=== PATIENT | female | born 2000 | race Caucasian/White ===

== ENCOUNTER 2020-06-05 06:03 | Emergency (ER) | payer OTHER, SELFPAY ==
[2020-06-05 06:29] VITALS: BP 110/73; PULSE 79; RESP 18; TEMP 36.8; O2SAT 97; BMI 20.7
[2020-06-05 06:37] VITALS: BP 110/73; PULSE 77; RESP 18; TEMP 36.8; O2SAT 98
--- NOTE | 2020-06-05 06:59 | XR_ITS ---
EXAMINATION: XR ANKLE, RIGHT CLINICAL INFORMATION: Lateral malleolus pain. COMPARISON: None TECHNIQUE: AP, lateral, and mortise views of the right ankle. FINDINGS: The ankle joint and mortise are intact. There is no acute fracture or dislocation. The tibiotalar joint space is unremarkable. The malleoli are intact. The tarsal bones are normally aligned. The soft tissues are unremarkable. XR/XR ankle RT min 3V IMPRESSION: Unremarkable right ankle.
--- NOTE | 2020-06-05 07:00 | ED_ITS ---
HPI - General Adult General Chief complaint: Fall Stated complaint: PANIC ATTACK Time Seen by Provider: 06/05/20 06:55 Source: patient Mode of arrival: ambulatory History of Present Illness HPI narrative: patient comes to emergency room complaining of a fall, patient states she was walking down the stairs in her porch, missed couple of steps, sprained her right ankle. Patient states she was unable to bear weight on her right foot after a fall, patient's brother help her to come to the emergency room. Patient states she did not hit her head, no loss of consciousness, not on blood thinners complaint: sprain ankle Onset (ago): hour(s) Related Data Home Medications Medication Instructions Recorded Confirmed No Known Home Meds 06/05/20 06/05/20 Allergies Allergy/AdvReac Type Severity Reaction Status Date / Time No Known Allergies Allergy Verified 06/05/20 06:29 [No Known Allergies*] Review of Systems Review of Systems: Constitutional : No Weight loss, No Fever, No Chills, No N ight Sweats, No Fatigue, No Malaise ENT/Mouth : No Hearing loss, No Ear Pain, No Nasal Congestion, No Sinus Pain, No Hoarseness, No sore throat, No Rhinorrhea, No Swallowing Difficulty Eyes: No Eye Pain, No Swelling, No Redness, No Foreign Body, No Discharge, No Vision Changes Cardiovascular : No Chest Pain, No SOB, No Dyspnea on Exertion, No Orthopnea, No Edema, No Palpitations Respiratory : No Cough, No Sputum, No Wheezing, No Smoke Exposure, No Dyspnea Gastrointestinal : No Nausea, No Vomiting, No Diarrhea, No Constipation, No abdominal Pain, No Hematochezia, No Melena Genitourinary : no irregular bleeding, No Dysuria, No Urinary Frequency, No Hematuria, No Urinary Incontinence, No Urgency, No Flank Pain, No Urinary Flow Changes, No Hesitancy Musculoskeletal : right-sided ankle pain Skin : No Skin Lesions, No rash Neuro : No Weakness, No Numbness, No Paresthesias, No Loss of Consciousness, No Dizziness, No Headache Psych : No Anxiety/Panic, No Depression, No SI/HI/AH/VH, No Social Issues, Heme/Lymph: No Bruising, No Bleeding,No Lymphadenopathy Endocrine : No Polyuria, No Polydipsia, No Temperature Intolerance [facility] Past Medical History Medical History Ankle sprain Social History Social History Alcohol intake: current Alcohol intake frequency: holidays/special occasions only Alcohol type: wine Smoked in Last 30 Days: No Use of substances other than those prescribed or required for medical reasons: No Advance Directives: No Advance Directives Information Provided: No Physical Exam Vital Signs: Vital Signs: Vital Signs Temp Pulse Resp BP Pulse Ox 06/05/20 06:37 98.2 F 77 18 110/73 98 06/05/20 06:29 98.2 F 79 18 110/73 97 Body Mass Index 20.7 Appearance: Alert. Oriented X3. No acute distress. Eyes: Pupils equal, round and reactive to light. ENT: Pharynx normal. Neck: Normal inspection. Neck supple. No lymph nodes noted. No crepitus CVS: Normal heart rate and rhythm. Pulses normal. Normal S1 and S2 Respiratory: No respiratory distress. Breath sounds normal. No Wheezing. No rales Abdomen: Soft and nontender. No rigidity. No distention. good BS x4 Skin: Skin warm and dry. Normal skin color. Normal skin turgor. Extremities: No lower extremity edema. mild swelling in the lateral malleolus on the right ankle, tender to palpation over the malleolus, unable to bear weight, left ankle within normal limits Neuro: Oriented X 3. No motor deficit. No sensory deficit. Moving all extermities. No slurred speech. Course Course Course Narrative: I discussed the x-rays with the patient, no acute fracture. I offered crutches to the patient, she declined. Discharge Plan Discharge Clinical Impression: Sprain of ankle Qualifiers: Encounter type: initial encounter Involved ligament of ankle: unspecified ligament Laterality: right Qualified Code(s): S93.401A - Sprain of unspecified ligament of right ankle, initial encounter Patient Disposition: Home, Self-Care Instructions: Ankle Sprain (ED) Additional Instructions: you can apply cold compresses to your ankle for 15 minutes every 2-3 hours while your awake for the next 24 hours. Please follow-up with your primary care physician tomorrow. If you have any worsening or new symptoms, please return to the emergency room or call 911 Prescriptions: No Action No Known Home Meds RF: 0
== END 2020-06-05 08:06 | disposition home or self-care (01) ==
PROVIDERS: Emergency Provider Emergency Medicine
DX: S93.401A Sprain of unspecified ligament of right ankle, initial encounter (principal); M25.571 Pain in right ankle and joints of right foot; F41.0 Panic disorder [episodic paroxysmal anxiety]; W10.9XXA Fall (on) (from) unspecified stairs and steps, initial encounter; Y92.009 Unspecified place in unspecified non-institutional (private) residence as the place of occurrence of the external cause
CPT/HCPCS: 73610; 99283; 99284

== ENCOUNTER 2021-01-09 06:41 | Emergency (ER) | payer OTHER, SELFPAY ==
--- NOTE | ~2021-01-09 | XR_ITS ---
EXAMINATION: XR SOFT TISSUE NECK CLINICAL INDICATION: Hoarse voice, difficulty swallowing COMPARISON: None TECHNIQUE: 2 views of the soft tissue neck were obtained. FINDINGS: Soft tissue films of the neck demonstrate a normal larynx, pharynx and upper trachea. No soft tissue swelling or opaque foreign body is demonstrated. XR/XR soft tissue neck IMPRESSION: Unremarkable examination.
[2021-01-09 07:58] VITALS: BP 105/74; PULSE 75; RESP 18; TEMP 36.7; O2SAT 98; BMI 23.3
--- NOTE | 2021-01-09 09:33 | ED.GENADULT ---
HPI - General Adult General Chief complaint: Upper Respiratory Symptoms Stated complaint: cant swallow/talk sore throat Time Seen by Provider: 01/09/21 09:18 Source: patient Mode of arrival: ambulatory History of Present Illness HPI narrative: 20 y.o. F with no significant PMH presenting to the ED for sore throat and hoarseness. Pt. states 3 days ago she went to [facility] for an allergic reaction because she was covered in [employer]. SHe gave herself her own EPi Pen. She states she received zyrtec and did not get any steroids. SHe states hours later she developed a sore throat. It is painful to swallow. She has a hoarse voice. She has had decreased PO intake over the past 2 days due to pain. She is still able to swallow her saliva. She denies sick contacts. She denies fevers, nasal congestion, ear pain, vomiting, diarrhea. She has a mild nonproductive cough. MD complaint: 3 Onset (ago): day(s) Related Data Previous Rx's Medication Instructions Recorded ibuprofen 600 mg PO Q6H PRN 5 Days tab 01/09/21 Allergies Allergy/AdvReac Type Severity Reaction Status Date / Time No Known Allergies Allergy Verified 06/05/20 06:29 [No Known Allergies*] Review of Systems Constitutional: Constitutional: Denies fever(s) and Reports poor appetite Eyes: Eyes: Reports no additional eye complaints ENT: Denies dental pain, Denies dysphagia, Reports hoarseness, Denies nasal congestion and Reports sore throat Cardiovascular: Cardiovascular: Denies chest pain, Reports syncope and Denies dyspnea Respiratory: Respiratory: Reports cough and Denies dyspnea Gastrointestinal: Gastrointestinal: Denies abdominal pain, Denies dysphagia, Denies diarrhea and Denies vomiting Musculoskeletal: Musculoskeletal: Reports no additional musculoskeletal complaints Neurologic: Reports system reviewed and no additional complaints, except as documented and Reports syncope Hematologic/Lymphatic: Hematologic/Lymphatic: Denies easy bleeding PMFSH Past Medical History Medical History Ankle sprain Social History Social History Alcohol intake: never Smoked in Last 30 Days: No Use of substances other than those prescribed or required for medical reasons: No Advance Directives: No Advance Directives Information Provided: No Patient : No Physical Exam Vital Signs: Vital Signs: Last Vital Signs Temp 98.6 F 01/09/21 11:47 Pulse 84 01/09/21 11:47 Resp 16 01/09/21 11:47 BP 116/66 01/09/21 11:47 Pulse Ox 98 01/09/21 11:47 Body Mass Index 23.3 Const: Other: laying on right lateral side in the chair Orientation/consciousness: patient oriented x3 HENMT: Other: mild pharyngeal erythema, no tonsilar hypertrophy, no uvula deviation, no sublingual woodiness, no submandibular swelling, not drooling, not in the tripod position, hoarse voice Head: Yes atraumatic Mouth: tongue normal Teeth and gingiva: dentition normal Eyes: Other: PERRL, EOMI Neck: Other: bilateral cervical tenderness along anterior cervical chain Neck: Yes full ROM, Yes no meningeal signs, Yes trachea midline and Yes supple Resp: Other: no stridor, not wheezing, mild nonproductive cough Effort & Inspection: normal respiratory effort Auscultation: clear to auscultation bilaterally Cardio: Rate: regular rate Rhythm: regular rhythm GI: Inspection: No distended Back/Spine/Pelvis: Other: full ROM Skin: General skin exam: no rashes or lesions noted Neuro: General: patient oriented x3 and no meningeal signs Extrem: General: Yes full ROM Psych: Appearance: well kempt Course Reevaluation(s) Reevaluation #1: Pt. sitting upright, she states her symptoms are improving but continues to have a coarse voice. Will add on plain film of her neck. Doubt this is epiglotitis, since she is not tripodding and handling her secretions, but will evaluate plain film. Time: 10:33 Reevaluation #2: Xray negative. COVID negative. Group A strep screen negative. I discussed this with the pt. she feels comfortable with discharge home. No decompensation since she has been in the ED > 4 hours. I discussed strict return precautions. Will give ibuprofen to go home with. OTC throat lozenges recommended. Medical Decision Making MDM Narrative Medical decision making narrative: 20-year-old female presenting to the emergency department with sore throat and painful swallowing, decreased p.o. x3 days, went to [facility] 3 days ago for an allergic reaction took her own EpiPen, and was given Zyrtec to go home with. She is unsure what trigger that event. Since then her symptoms have been starting. Vital stable, not toxic appearing, hemodynamically stable Patient has pharyngeal exam is pretty unremarkable, she has some mild erythema. She does not have any tonsillar fullness to suggest a peritonsillar abscess. Her neck is supple and she is able to range it there for retropharyngeal abscess is less likely. She does not have any meningeal signs. Epiglottitis is unlikely as she is not drooling she is able to handle her secretions, no stridor, no wheezing. No evidence of Catracho's, no sublingual woodines. Strep pharyngitis is considered however her center score is 1, will send off strep screen. Will swab her for COVID. Symptoms could be due to immune response since she had an allergic reaction 3 days ago.Will give her tylenol, toradol, viscous lidocaine, dexamethasone. Lab Data Labs: Lab Results 01/09/21 01/09/21 Range/Units 09:45 09:45 COVID-19 (OUMAR) Negative (Negative) COVID-19 Clin Com See Note S. pyogenes GrpA BARRY Negative (Negative) Discharge Plan Discharge Clinical Impression: Pharyngitis Patient Disposition: Home, Self-Care Instructions: Pharyngitis (ED) Additional Instructions: Please return to the emergency department if your symptoms are worsening, fevers, difficulty swallowing your saliva, high pitched voice, trouble breathing, trouble swallowing, dizziness, weakness, or any other concerning symptoms. Drink plenty of fluids to prevent dehydration. You may take tylenol and motrin for pain if needed, use over the counter throat lozenges. Your xray of your neck was unremarkable. Follow up with your doctor as needed. Prescriptions: New ibuprofen 600 mg tablet 600 mg PO Q6H PRN (Reason: pain) 5 Days RF: 0 Interventions: ED Discharge Assessment Last Done: 01/09/21 11:52 Discharge Date/Time: 01/09/21 11:54
[2021-01-09] MEDS: dexAMETHasone 2 MG TABLET 10 MG PO (09:42)
[2021-01-09] MEDS: Acetaminophen 325 MG TABLET 650 MG PO (09:43)
[2021-01-09] MEDS: Lidocaine HCl Viscous 2 % 15 ML SOLUTION MUCOUS MEM (09:43)
[2021-01-09] MEDS: Ketorolac Tromethamine 15 MG/ML VIAL IM (09:43)
[2021-01-09 10:04] LABS: IDNOW Serial# 9DD0AD1C; Strep A Nucleic Acid Negative (Negative)
[2021-01-09 10:07] LABS: COVID-19 Test Negative (Negative)
[2021-01-09 11:47] VITALS: BP 116/66; PULSE 84; RESP 16; TEMP 37; O2SAT 98
== END 2021-01-09 11:54 | disposition home or self-care (01) ==
PROVIDERS: Physician Assistant Medical; Emergency Provider Emergency Medicine Emergency Medical Services
DX: J02.9 Acute pharyngitis, unspecified (principal); Z20.822 Contact with and (suspected) exposure to COVID-19
CPT/HCPCS: 36415; 70360; 87635; 87651; 96372; 99284; 99285; J1885; J8540

== ENCOUNTER 2021-03-31 21:06 | Emergency (ER) | payer OTHER, SELFPAY ==
[2021-03-31 22:23] VITALS: BP 116/65; PULSE 70; RESP 16; TEMP 36.9; O2SAT 100; BMI 22.9
== END 2021-04-01 01:37 | disposition left against medical advice (07) ==
PROVIDERS: Emergency Provider Emergency Medicine
DX: M67.431 Ganglion, right wrist (principal)
CPT/HCPCS: 99281; 99282

== ENCOUNTER → 2022-12-14 09:59 | Outpatient (BNVA) | payer OTHER, SELFPAY | PROVIDERS: Visit Provider Physician Assistant Medical | DX: Z77.21 Contact with and (suspected) exposure to potentially hazardous body fluids (principal) | CPT/HCPCS: 36415; 84450; 84460; 86706; 86803; 87389; 99202 ==